=== PATIENT | female | born 1995 | race Hispanic/Latino ===

== ENCOUNTER 2017-03-08 19:38 | Emergency (ER) | payer MEDICAID ==
[2017-03-08 19:38] VITALS: BMI 31.9
[2017-03-08 20:05] VITALS: RESP 16
--- NOTE | 2017-03-08 20:07 | ED PDOC ---
Arrival/HPI - General Time Seen by Provider: 03/08/17 20:04 Historian: Patient - History of Present Illness Narrative History of Present Illness (Text): 03/08/17 20:05 21 y/o female, no significant pmh, nkda, c/o urinary frequency and dysuria x 3 days. Pt. stated that she urinary symptoms, suprapubic discomfort, no night sweat, no palpitation, no abdominal pain, no numbness or tingling, no other medical or psychological complaints. Past Medical History - Provider Review Nursing Documentation Reviewed: Yes - Past History Past History: No Previous - Infectious Disease Hx of Infectious Diseases: None - Tetanus Immunization Tetanus Immunization: Unknown - Past Medical History Past Medical History: No Previous - Cardiac Hx Cardiac Disorders: No - Pulmonary Hx Respiratory Disorders: No - Neurological Hx Neurological Disorder: No - HEENT Hx HEENT Disorder: No - Renal Hx Renal Disorder: No - Endocrine/Metabolic Hx Endocrine Disorders: No - Hematological/Oncological Hx Blood Disorders: No - Integumentary Hx Dermatological Disorder: No - Musculoskeletal/Rheumatological Hx Musculoskeletal Disorders: No - Gastrointestinal Hx Gastrointestinal Disorders: No - Genitourinary/Gynecological Hx Genitourinary Disorders: No - Psychiatric Hx Psychophysiologic Disorder: No Hx Substance Use: No - Surgical History Hx Tonsillectomy: Yes Other/Comment: Adnoids removed - Anesthesia Hx Anesthesia: Yes Hx Anesthesia Reactions: No Hx Malignant Hyperthermia: No - Suicidal Assessment Feels Threatened In Home Enviroment: No Family/Social History - Physician Review Nursing Documentation Reviewed: Yes Family/Social History: Unknown Family HX Smoking Status: Never Smoked Hx Alcohol Use: No Hx Substance Use: No Hx Substance Use Treatment: No Allergies/Home Meds Allergies/Adverse Reactions: Allergies No Known Allergies Allergy (Verified 03/08/17 20:05) Review of Systems - Review of Systems Constitutional: absent: Fatigue, Fevers Eyes: absent: Vision Changes ENT: absent: Hearing Changes Respiratory: absent: SOB, Cough Cardiovascular: absent: Chest Pain Gastrointestinal: absent: Abdominal Pain, Nausea, Vomiting Genitourinary Female: Dysuria, Frequency Musculoskeletal: absent: Arthralgias, Back Pain Skin: absent: Rash, Pruritis Neurological: absent: Headache, Dizziness Psychiatric: absent: Anxiety, Depression, Suicidal Ideation Physical Exam Vital Signs Reviewed: Yes Vital Signs Temp Pulse Resp BP Pulse Ox 03/08/17 20:02 98.9 F 94 H 16 112/62 97 Temperature: Afebrile Blood Pressure: Normal Pulse: Regular Respiratory Rate: Normal Appearance: Positive for: Well-Appearing, Non-Toxic, Comfortable Pain Distress: Mild Mental Status: Positive for: Alert and Oriented X 3 - Systems Exam Head: Present: Atraumatic, Normocephalic Pupils: Present: PERRL Extroacular Muscles: Present: EOMI Conjunctiva: Present: Normal Mouth: Present: Moist Mucous Membranes Neck: Present: Normal Range of Motion Respiratory/Chest: Present: Clear to Auscultation, Good Air Exchange. No: Respiratory Distress, Accessory Muscle Use Cardiovascular: Present: Regular Rate and Rhythm, Normal S1, S2. No: Murmurs Abdomen: Present: Tenderness (mild suprapubic tenderness), Normal Bowel Sounds. No: Distention, Peritoneal Signs, Rebound, Guarding Back: Present: Normal Inspection Upper Extremity: Present: Normal Inspection. No: Cyanosis, Edema Lower Extremity: Present: Normal Inspection. No: Edema Neurological: Present: GCS=15, Speech Normal, Motor Func Grossly Intact, Gait Normal, Memory Normal Skin: Present: Warm, Dry, Normal Color. No: Rashes Psychiatric: Present: Alert, Oriented x 3, Normal Insight, Normal Concentration Medical Decision Making ED Course and Treatment: 03/08/17 20:07 -Urine hcg -UA 03/08/17 21:08 -Urine hcg negative. -UA show +UTI, rocephine 1gm IM with po pyridium ordered. -Discharge home with macrobid, pyridium, stay hydrated, bed rest, follow up with your own pmd within 2 days, return to the ER for any new or worsening signs or symptoms. - Lab Interpretations Lab Results: Lab Results 03/08/17 20:12: Urine Color Yellow, Urine Appearance Clear, Urine pH 6.5, Ur Specific [place] 1.025, Urine Protein 30 H, Urine Glucose (UA) Negative, Urine Ketones Negative, Urine Blood Moderate H, Urine Nitrate Negative, Urine Bilirubin Negative, Urine Urobilinogen 0.2, Ur Leukocyte Esterase Small H, Urine RBC 25 - 30, Urine WBC 10 - 15, Ur Epithelial Cells 6 - 8, Amorphous Sediment Few, Urine Bacteria Many, Urine Other Uyeast - Medication Orders Current Medication Orders: Discontinued Medications Ceftriaxone Sodium (Rocephin) 1 gm IM STAT STA PRN Reason: Protocol Stop: 03/08/17 20:58 Phenazopyridine HCl (Pyridium) 200 mg PO STAT STA Stop: 03/08/17 20:35 - 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 Disposition/Present on Arrival - Present on Arrival Any Indicators Present on Arrival: No History of DVT/PE: No History of Uncontrolled Diabetes: No Urinary Catheter: No History of Decub. Ulcer: No History Surgical Site Infection Following: None - Disposition Have Diagnosis and Disposition been Completed?: Yes Diagnosis: UTI (urinary tract infection) Disposition: HOME/ ROUTINE Disposition Time: 21:09 Patient Plan: Discharge Patient Problems: Current Active Problems Problem Status Onset UTI (urinary tract infection) Acute Condition: GOOD Additional Instructions: Discharge home with macrobid, pyridium, stay hydrated, bed rest, follow up with your own pmd within 2 days, return to the ER for any new or worsening signs or symptoms. Prescriptions: Nitrofurantoin Macrocrystals [Macrobid] 100 mg PO BID #14 cap Phenazopyridine [Phenazopyridine HCl] 200 mg PO TID #6 tab Referrals: [facility] [place]] - Follow up with primary Forms: WORK NOTE
[2017-03-08 20:26] LABS: PH,URINE 6.5 (4.7-8.0); URINE APPEARANCE CLEAR (CLEAR); URINE BILIRUBIN NEGATIVE (NEGATIVE); URINE BLOOD MODERATE (NEGATIVE); URINE COLOR YELLOW (YELLOW); URINE GLUCOSE (UA) NEGATIVE (NEGATIVE); URINE KETONE NEGATIVE (NEGATIVE); URINE LEUKOCYTE ESTERASE SMALL Leu/uL (NEGATIVE); URINE PROTEIN 30 mg/dL (<30 mg/dL); URINE UROBILINOGEN 0.2 E.U./dL (<1 E.U./dL)
[2017-03-08 20:39] LABS: URINE RBC 25 - 30 /hpf (0-2)
[2017-03-08 20:40] LABS: URINE AMORPHOUS SEDIMENT FEW; URINE BACTERIA MANY (NEG)
[2017-03-08] MEDS ORDERED: cefTRIAXone (Rocephin) 1 gm Inj IM STA (20:57)
[2017-03-08 21:44] VITALS: BP 121/75; PULSE 77; TEMP 98.7; O2SAT 100
== END 2017-03-08 21:46 | disposition home or self-care (01) ==
LOC: ED 19:38
DX: N39.0 Urinary tract infection, site not specified (principal)
CPT/HCPCS: 81001; 87086; 87181; 96372; 99283; J0696

== ENCOUNTER 2018-01-23 04:48 | Emergency (ER) | payer MEDICAID ==
[2018-01-23 04:48] VITALS: BMI 31.9
[2018-01-23 04:58] VITALS: BP 111/71; PULSE 92; RESP 18; TEMP 97.7
[2018-01-23] MEDS ORDERED: Amoxicillin-Clav 875-125 mg Tab PO STA (05:07)
--- NOTE | 2018-01-23 05:09 | ED PDOC ---
Arrival/HPI - General Chief Complaint: Cough, Cold, Congestion Time Seen by Provider: 01/23/18 05:01 Historian: Patient - History of Present Illness Narrative History of Present Illness (Text): 01/23/18 05:05 Radha Negrete is a 22 year old female, whose past medical history includes tonsillectomy, who presents to the emergency department with complaints of rhinorrhea and sore throat for the past few days. Patient reports associated nasal congestion and tinnitus. Patient denies any fever, chills, shortness of breath, cough, dizziness, headache, chest pain, abdominal pain, or any other complaint. Time/Duration: < week Symptom Onset: Gradual Symptom Course: Unchanged Activities at Onset: Light Context: Home Past Medical History - Provider Review Nursing Documentation Reviewed: Yes - Past History Past History: No Previous - Infectious Disease Hx of Infectious Diseases: None - Tetanus Immunization Tetanus Immunization: Unknown - Past Medical History Past Medical History: No Previous - Cardiac Hx Cardiac Disorders: No - Pulmonary Hx Respiratory Disorders: No - Neurological Hx Neurological Disorder: No - HEENT Hx HEENT Disorder: No - Renal Hx Renal Disorder: No - Endocrine/Metabolic Hx Endocrine Disorders: No - Hematological/Oncological Hx Blood Disorders: No - Integumentary Hx Dermatological Disorder: No - Musculoskeletal/Rheumatological Hx Musculoskeletal Disorders: No - Gastrointestinal Hx Gastrointestinal Disorders: No - Genitourinary/Gynecological Hx Genitourinary Disorders: No - Psychiatric Hx Psychophysiologic Disorder: No Hx Substance Use: No - Surgical History Hx Tonsillectomy: Yes Other/Comment: Adnoids removed - Anesthesia Hx Anesthesia: Yes Hx Anesthesia Reactions: No Hx Malignant Hyperthermia: No - Suicidal Assessment Feels Threatened In Home Enviroment: No Family/Social History - Physician Review Nursing Documentation Reviewed: Yes Family/Social History: Unknown Family HX Smoking Status: Never Smoked Hx Alcohol Use: Yes Frequency of alcohol use: Socially Hx Substance Use: No Hx Substance Use Treatment: No Allergies/Home Meds Allergies/Adverse Reactions: Allergies No Known Allergies Allergy (Verified 03/08/17 20:05) Review of Systems - Physician Review All systems were reviewed & negative as marked: Yes - Review of Systems Constitutional: absent: Fevers ENT: Tinnitus, Sore Throat, Rhinorrhea, Sinus Congestion Respiratory: absent: SOB, Cough Cardiovascular: absent: Chest Pain Gastrointestinal: absent: Abdominal Pain Musculoskeletal: absent: Back Pain, Neck Pain Neurological: absent: Headache, Dizziness Physical Exam Vital Signs Reviewed: Yes Vital Signs Temp Pulse Resp BP Pulse Ox 01/23/18 04:56 97.7 F 92 H 18 111/71 97 Temperature: Afebrile Blood Pressure: Normal Pulse: Regular Respiratory Rate: Normal Appearance: Positive for: Well-Appearing, Non-Toxic, Comfortable Pain Distress: None Mental Status: Positive for: Alert and Oriented X 3 - Systems Exam Head: Present: Atraumatic, Normocephalic Pupils: Present: PERRL Extroacular Muscles: Present: EOMI Conjunctiva: Present: Normal Ears: Present: Normal, NORMAL TM, Normal Canal. No: Erythema, TM Bulging, Fluid, TM Perf Mouth: Present: Moist Mucous Membranes Pharnyx: Present: ERYTHEMA (erythema to posterior pharynx). No: EXUDATE, TONSILS ENLARGED, Peritonsilar Swelling, Uvular Deviation, Muffled/Hoarse Voice, Strider, Soft Palate/Uvular Edema Nose (Internal): Present: Rhinorrhea, Other (Nasal congestion) Neck: Present: Normal Range of Motion. No: Meningeal Signs, MIDLINE TENDERNESS, Paraspinal Tenderness Respiratory/Chest: Present: Clear to Auscultation, Good Air Exchange. No: Respiratory Distress, Accessory Muscle Use Cardiovascular: Present: Regular Rate and Rhythm, Normal S1, S2. No: Murmurs Abdomen: No: Tenderness, Distention, Peritoneal Signs Back: Present: Normal Inspection Upper Extremity: Present: Normal Inspection. No: Cyanosis, Edema Lower Extremity: Present: Normal Inspection. No: Edema Neurological: Present: GCS=15, CN II-XII Intact, Speech Normal Skin: Present: Warm, Dry, Normal Color. No: Rashes Psychiatric: Present: Alert, Oriented x 3, Normal Insight, Normal Concentration Medical Decision Making ED Course and Treatment: 01/23/18 05:05 Impression: 22 year old female who presents to the emergency department with sore throat, rhinorrhea, nasal congestion, and tinnitus. Plan: -- Augmentin -- Sudafed -- Reassess and disposition Progress Notes: - Scribe Statement The provider has reviewed the documentation as recorded by the Scribe Rachael lyman with [facility] Cross Provider Scribe Attestation: All medical record entries made by the Scribe were at my direction and personally dictated by me. I have reviewed the chart and agree that the record accurately reflects my personal performance of the history, physical exam, medical decision making, and the department course for this patient. I have also personally directed, reviewed, and agree with the discharge instructions and disposition. Disposition/Present on Arrival - Present on Arrival Any Indicators Present on Arrival: No History of DVT/PE: No History of Uncontrolled Diabetes: No Urinary Catheter: No History of Decub. Ulcer: No History Surgical Site Infection Following: None - Disposition Have Diagnosis and Disposition been Completed?: Yes Diagnosis: Sinusitis, Pharyngitis Disposition: HOME/ ROUTINE Disposition Time: 05:18 Patient Plan: Discharge Condition: GOOD Discharge Instructions (ExitCare): Sore Throat, Adult (DC), Sinusitis, Adult (DC) Additional Instructions: Drink plenty of liquids/take meds as prescribed/follow up with your doctor Prescriptions: Fexofenadine/Pseudoephedrine [Emily-D 12 Hour Tablet] 1 each PO BID PRN #24 tab.er.12h PRN Reason: Nasal Congestion Amoxicillin/Clavulanate [Augmentin 875 MG-125 MG] 1 tab PO BID #20 tab Forms: [employer] (Estonian)
[2018-01-23 05:52] VITALS: O2SAT 98
== END 2018-01-23 05:50 | disposition home or self-care (01) ==
LOC: ED 04:48
DX: J32.9 Chronic sinusitis, unspecified (principal); J02.9 Acute pharyngitis, unspecified

== ENCOUNTER 2018-04-27 09:19 | Observation (INO) | payer MEDICAID ==
[2018-04-27 09:44] VITALS: BMI 33.4
--- NOTE | 2018-04-27 09:59 | ED PDOC ---
Arrival/HPI - General Historian: Patient - History of Present Illness Narrative History of Present Illness (Text): 04/27/18 09:46 23 year old female, pmh including orbital wall fracture, nkda, complaining of abdominal pain/nausea/vomiting/diarrhea/fatigue x 1 day. Pt. stated that she had rice and lee last night cooked properly last night around 7pm, started to have nausea/vomiting/diarrhea throughout the night, no bloody stool and no abdominal pain, no recent antibiotic use for the past 6 weeks, no numbness or tingling, no other medical or psychological complaints. Past Medical History - Provider Review Nursing Documentation Reviewed: Yes - Past History Past History: No Previous - Infectious Disease Hx of Infectious Diseases: None - Tetanus Immunization Tetanus Immunization: Unknown - Reproductive Currently : No - Past Medical History Past Medical History: No Previous - Cardiac Hx Cardiac Disorders: No - Pulmonary Hx Respiratory Disorders: No - Neurological Hx Neurological Disorder: No - HEENT Hx HEENT Disorder: No - Renal Hx Renal Disorder: No - Endocrine/Metabolic Hx Endocrine Disorders: No - Hematological/Oncological Hx Blood Disorders: No - Integumentary Hx Dermatological Disorder: No - Musculoskeletal/Rheumatological Hx Musculoskeletal Disorders: No - Gastrointestinal Hx Gastrointestinal Disorders: No - Genitourinary/Gynecological Hx Genitourinary Disorders: No - Psychiatric Hx Psychophysiologic Disorder: No Hx Substance Use: No - Surgical History Hx Tonsillectomy: Yes Other/Comment: Adnoids removed - Anesthesia Hx Anesthesia: Yes Hx Anesthesia Reactions: No Hx Malignant Hyperthermia: No - Suicidal Assessment Feels Threatened In Home Enviroment: No Family/Social History - Physician Review Nursing Documentation Reviewed: Yes Family/Social History: Unknown Family HX Smoking Status: Never Smoked Hx Alcohol Use: Yes Hx Substance Use: No Hx Substance Use Treatment: No Allergies/Home Meds Allergies/Adverse Reactions: Allergies No Known Allergies Allergy (Verified 04/27/18 09:44) Home Medications: Home Meds Medication Instructions Recorded Confirmed No Known Home Med 12/10/11 12/10/11 Review of Systems - Review of Systems Constitutional: Fatigue. absent: Fevers Eyes: absent: Vision Changes ENT: absent: Hearing Changes Respiratory: absent: SOB, Cough Cardiovascular: absent: Chest Pain Gastrointestinal: Abdominal Pain, Diarrhea, Nausea, Vomiting Musculoskeletal: absent: Arthralgias, Back Pain Skin: absent: Rash, Pruritis Neurological: absent: Headache, Dizziness Psychiatric: absent: Anxiety, Depression, Suicidal Ideation Physical Exam Vital Signs Reviewed: Yes Temperature: Afebrile Blood Pressure: Normal Pulse: Regular Respiratory Rate: Normal Appearance: Positive for: Well-Appearing, Non-Toxic, Comfortable Pain Distress: None Mental Status: Positive for: Alert and Oriented X 3 - Systems Exam Head: Present: Atraumatic, Normocephalic Pupils: Present: PERRL Extroacular Muscles: Present: EOMI Conjunctiva: Present: Normal Mouth: Present: Moist Mucous Membranes Pharnyx: No: ERYTHEMA, EXUDATE, TONSILS ENLARGED Nose (External): Present: Atraumatic. No: Abrasion, Contusion, Laceration Nose (Internal): Present: Normal Inspection, No Active Bleeding. No: Edematous, Rhinorrhea, Septal Deviation, Septal Hematoma, Epistaxis Neck: Present: Normal Range of Motion, Trachea Midline. No: Meningeal Signs, MIDLINE TENDERNESS, Paraspinal Tenderness, Lymphadenopathy Respiratory/Chest: Present: Clear to Auscultation, Good Air Exchange. No: Respiratory Distress, Accessory Muscle Use, Wheezes, Decreased Breath Sounds, Rales, Retracting, Rhonchi, Tachypneic, Tender to Palpation Cardiovascular: Present: Regular Rate and Rhythm, Normal S1, S2. No: Murmurs Abdomen: Present: Tenderness (generalized). No: Distention, Peritoneal Signs, Rebound, Guarding Back: Present: Normal Inspection Upper Extremity: Present: Normal Inspection, Normal ROM, NORMAL PULSES, Neurovascularly Intact, Capillary Refill < 2s. No: Cyanosis, Edema, Deformity Lower Extremity: Present: Normal Inspection, NORMAL PULSES, Normal ROM, Neurovascularly Intact, Capillary Refill < 2 s. No: Edema, Tenderness, Swelling, Deformity Neurological: Present: GCS=15, CN II-XII Intact, Speech Normal, Motor Func Grossly Intact, Gait Normal, Memory Normal Skin: Present: Warm, Dry, Normal Color. No: Rashes Psychiatric: Present: Alert, Oriented x 3, Normal Insight, Normal Concentration Medical Decision Making ED Course and Treatment: 04/27/18 10:12 -labs -IVF/pepcid/zofran -Observe and reasses 04/27/18 12:39 -Urine hcg is negative -CT abdomen and pelvis: Findings consistent with a nonspecific diarrheal illness as above. Minor fatty hepatic infiltration. -Labs show no acute findings except wbc 17 -Urinalysis show no UTI -Pt. feels well, will repeat the cbc after 2000cc of fluid and reassess 04/27/18 14:06 -repeated wbc 14, still tachycardia around 100s after 2000cc fluid, IV cipro/flagyl ordered with the stool/c.diff stool cultures as I can not clinically rule out this is not bacterial colitis/c.diff, risks and benefits of antibiotics discussed with the patient including side effect of cipro (prolong qt and achilles tendon rupture). -Pt. stated that she still feels fatigue and tired, too fatigue to get up, not stable to be discharged home, will admit for IV antibiotic. 04/27/18 14:23 -I spoke to DR. Doe, discussed about the case, agreed to admit to his service. - RAD Interpretation Radiology Orders: Date of service: 04/27/2018 PROCEDURE: CT Abdomen and Pelvis. HISTORY: Diarrhea/nausea/vomiting COMPARISON: Comparison made with prior study 12/03/2015 TECHNIQUE: Contiguous axial images of the abdomen and pelvis performed following intravenous injection of approximately 100 cc Omnipaque 350 contrast material. Additional 2D sagittal and coronal reformats generated. Radiation dose: Total exam DLP = 965.39 mGy-cm. This CT exam was performed using one or more of the following dose reduction techniques: Automated exposure control, adjustment of the mA and/or kV according to patient size, and/or use of iterative reconstruction technique. FINDINGS: LOWER THORAX: Heart size is within range of normal. No significant pericardial effusion. There is a small hiatal hernia. LIVER: Unremarkable. Minor fatty hepatic infiltration. No gross lesion or ductal dilatation. GALLBLADDER AND BILE DUCTS: Unremarkable. PANCREAS: Unremarkable. No mass. No ductal dilatation. SPLEEN: Unremarkable. No splenomegaly. ADRENALS: Unremarkable. KIDNEYS AND URETERS: Unremarkable. No stone or hydronephrosis. BLADDER: Urinary bladder is incompletely distended which in part accounts slight thick- walled appearance. Rule out cystitis therefore correlation with urinalysis suggested. The REPRODUCTIVE: Unremarkable. APPENDIX: Normal-appearing appendix. BOWEL: Evaluation of the bowel slightly limited due to the lack of oral contrast material. Stomach is partially distended with liquid and air. Multiple nondistended fluid-filled loops of small bowel are present some of which exhibit minimal. Additionally, fluid is present of within portions of the large bowel. Findings consistent with a diarrheal illness nonspecific.. PERITONEUM: Unremarkable. No fluid collection. No free air. There is a small fat containing umbilical hernia. The LYMPH NODES: Unremarkable. No enlarged lymph nodes. VASCULATURE: Unremarkable. No aortic aneurysm. No aortic atherosclerotic calcification or mural plaque present. BONES: No fracture or destructive lesion. OTHER FINDINGS: None. IMPRESSION: Findings consistent with a nonspecific diarrheal illness as above. 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 Disposition/Present on Arrival - Present on Arrival Any Indicators Present on Arrival: No History of DVT/PE: No History of Uncontrolled Diabetes: No Urinary Catheter: No History of Decub. Ulcer: No History Surgical Site Infection Following: None - Disposition Have Diagnosis and Disposition been Completed?: Yes Diagnosis: Leukocytosis, Diarrhea Disposition: HOSPITALIZED Disposition Time: 14:07 Patient Plan: Admission, Observation Patient Problems: Current Active Problems Problem Status Onset Diarrhea Acute Leukocytosis Acute Condition: STABLE
[2018-04-27] MEDS ORDERED: Sodium Chloride 0.9% 1,000 ML IV STA ×2 (10:06→11:40)
[2018-04-27 10:15] LABS: BASO # 0.01 K/mm3 (0.0-2.0); BASO % 0.1 % (0.0-3.0); LYMPH # 0.6 (1.2-3.4); LYMPH % 3.7 % (22.0-35.0); MEAN CELL VOLUME 88.1 fl (80.0-105.0); MEAN CORPUSCULAR HEMOGLOBIN 28.8 pg (25.0-35.0); MEAN CORPUSCULAR HGB CONC 32.7 g/dl (31.0-37.0); MEAN PLATELET VOLUME 9.4 fl (7.0-11.0); MONO # 0.5 (0.1-0.6); MONO % 2.8 % (1.0-6.0); PLATELET COUNT 328 10^3/uL (120.0-450.0); RBC 4.86 10^6/uL (3.5-6.1); RED CELL DISTRIBUTION WIDTH 13.7 % (11.5-14.5)
[2018-04-27 10:23] LABS: ALB/GLOB RATIO 1.3 (1.1-1.8); ALBUMIN 4.7 g/dL (3.0-4.8); ALT/SGPT 27 U/L (7-56); AST/SGOT 26 U/L (14-36); BLOOD UREA NITROGEN 12 mg/dL (7-21); CALCIUM 9.6 mg/dL (8.4-10.5); GFR NON-AFRICAN AMERICAN > 60; LIPASE 51 U/L (23-300)
[2018-04-27 10:58] LABS: LYMPHOCYTE 3 % (22.0-35.0); MONOCYTE 2 % (1.0-6.0); NEUTROPHIL 95 % (50.0-70.0); PLATELET ESTIMATE NORMAL (NORMAL)
[2018-04-27 10:59] LABS: ANISOCYTOSIS SLIGHT; TOXIC GRANULATION SLIGHT
[2018-04-27] MEDS ORDERED: Iohexol 350 MG/100 ML VIAL ONE (11:06)
[2018-04-27 11:15] LABS: PH,URINE 7.5 (4.7-8.0); URINE BILIRUBIN NEGATIVE (NEGATIVE); URINE BLOOD NEGATIVE (NEGATIVE); URINE GLUCOSE (UA) NEGATIVE (NEGATIVE); URINE LEUKOCYTE ESTERASE NEGATIVE Leu/uL (NEGATIVE); URINE PROTEIN 30 mg/dL (<30 mg/dL); URINE UROBILINOGEN 0.2 E.U./dL (<1 E.U./dL)
[2018-04-27 11:22] LABS: URINE APPEARANCE CLEAR (CLEAR); URINE COLOR YELLOW (YELLOW)
[2018-04-27 11:27] LABS: URINE BACTERIA MANY /hpf; URINE RBC 0 - 2 /hpf (0-2)
--- NOTE | 2018-04-27 12:07 | CT ---
Date of service: 04/27/2018 PROCEDURE: CT Abdomen and Pelvis. HISTORY: Diarrhea/nausea/vomiting COMPARISON: Comparison made with prior study 12/03/2015 TECHNIQUE: Contiguous axial images of the abdomen and pelvis performed following intravenous injection of approximately 100 cc Omnipaque 350 contrast material. Additional 2D sagittal and coronal reformats generated. Radiation dose: Total exam DLP = 965.39 mGy-cm. This CT exam was performed using one or more of the following dose reduction techniques: Automated exposure control, adjustment of the mA and/or kV according to patient size, and/or use of iterative reconstruction technique. FINDINGS: LOWER THORAX: Heart size is within range of normal. No significant pericardial effusion. There is a small hiatal hernia. LIVER: Unremarkable. Minor fatty hepatic infiltration. No gross lesion or ductal dilatation. GALLBLADDER AND BILE DUCTS: Unremarkable. PANCREAS: Unremarkable. No mass. No ductal dilatation. SPLEEN: Unremarkable. No splenomegaly. ADRENALS: Unremarkable. KIDNEYS AND URETERS: Unremarkable. No stone or hydronephrosis. BLADDER: Urinary bladder is incompletely distended which in part accounts slight thick-walled appearance. Rule out cystitis therefore correlation with urinalysis suggested. The REPRODUCTIVE: Unremarkable. APPENDIX: Normal-appearing appendix. BOWEL: Evaluation of the bowel slightly limited due to the lack of oral contrast material. Stomach is partially distended with liquid and air. Multiple nondistended fluid-filled loops of small bowel are present some of which exhibit minimal. Additionally, fluid is present of within portions of the large bowel. Findings consistent with a diarrheal illness nonspecific.. PERITONEUM: Unremarkable. No fluid collection. No free air. There is a small fat containing umbilical hernia. The LYMPH NODES: Unremarkable. No enlarged lymph nodes. VASCULATURE: Unremarkable. No aortic aneurysm. No aortic atherosclerotic calcification or mural plaque present. BONES: No fracture or destructive lesion. OTHER FINDINGS: None. IMPRESSION: Findings consistent with a nonspecific diarrheal illness as above. Minor fatty hepatic infiltration
[2018-04-27 13:33] LABS: BASO # 0.01 K/mm3 (0.0-2.0); BASO % 0.1 % (0.0-3.0); HEMOGLOBIN 12.7 g/dL (12.0-16.0); LYMPH # 0.4 (1.2-3.4); LYMPH % 2.9 % (22.0-35.0); MEAN CELL VOLUME 88.4 fl (80.0-105.0); MEAN CORPUSCULAR HGB CONC 32.8 g/dl (31.0-37.0); MEAN PLATELET VOLUME 9.6 fl (7.0-11.0); MONO # 0.5 (0.1-0.6); MONO % 3.8 % (1.0-6.0); RBC 4.38 10^6/uL (3.5-6.1); RED CELL DISTRIBUTION WIDTH 13.9 % (11.5-14.5); WHITE BLOOD COUNT 14.2 10^3/uL (4.5-11.0)
[2018-04-27] MEDS ORDERED: metroNIDAZOLE IV 500 mg/100 ml 500 MG/100 ML BAG IVPB STA (14:05)
[2018-04-27] MEDS ORDERED: Ciprofloxacin 400mg/200ml D5W 400 MG/200 ML BAG IVPB STA (14:05)
--- NOTE | 2018-04-27 15:30 | CP.PCM.HP ---
<Masoud Wiley - Last Filed: 04/27/18 15:43> History of Present Illness - History of Present Illness History of Present Illness: Masoud Wiley PGY1, History and Physical for Dr Shirley Potter Pt is a 23 yo female with no significant PMH who presents to the ED stating that she has been experiencing vomiting and diarrhea all night and has had approximately 10 episodes of diarrhea, both have been non bloody/ non bilious. Pt states she ate rice, chicken and beans last night but no one else who at the food got sick. She denies sick contacts, or recent travel. Pt has not been able to eat any food, she has only been able to drink Gatorade. Pt reports abdominal pain which has been constant and prompts her to try to have a BM, but the pain is not relieved after the BM. Pt denies fever. A 12 point ROS was obtained and added to the HPI where appropriate. PMH: denies PSH: T/A FH: Mother blood clots, spine surgery, Father DM SH: denies tobacco, social alcohol, denies drugs Home meds: depo shot Allergies: denies Present on Admission - Present on Admission Any Indicators Present on Admission: No Review of Systems - Review of Systems Review of Systems: a 12 point ROS was obtained and added to the HPI where appropriate Past Patient History - Infectious Disease Hx of Infectious Diseases: None - Tetanus Immunizations Tetanus Immunization: Unknown - Past Social History Smoking Status: Never Smoked - CARDIAC Hx Cardiac Disorders: No - PULMONARY Hx Respiratory Disorders: No - NEUROLOGICAL Hx Neurological Disorder: No - HEENT Hx HEENT Problems: No - RENAL Hx Chronic Kidney Disease: No - ENDOCRINE/METABOLIC Hx Endocrine Disorders: No - HEMATOLOGICAL/ONCOLOGICAL Hx Blood Disorders: No - INTEGUMENTARY Hx Dermatological Problems: No - MUSCULOSKELETAL/RHEUMATOLOGICAL Hx Musculoskeletal Disorders: No - GASTROINTESTINAL Hx Gastrointestinal Disorders: No - GENITOURINARY/GYNECOLOGICAL Hx Genitourinary Disorders: No - PSYCHIATRIC Hx Psychophysiologic Disorder: No Hx Substance Use: No - SURGICAL HISTORY Hx Tonsillectomy: Yes Other/Comment: Adnoids removed - ANESTHESIA Hx Anesthesia: Yes Hx Anesthesia Reactions: No Hx Malignant Hyperthermia: No Meds Allergies/Adverse Reactions: Allergies Allergy/AdvReac Type Severity Reaction Status Date / Time No Known Allergies Allergy Verified 04/27/18 09:44 Physical Exam - Constitutional Appears: No Acute Distress - Head Exam Head Exam: ATRAUMATIC, NORMOCEPHALIC - Eye Exam Eye Exam: EOMI - ENT Exam ENT Exam: Mucous Membranes Moist - Neck Exam Neck exam: Positive for: Full Rom - Respiratory Exam Respiratory Exam: Clear to Auscultation Bilateral, NORMAL BREATHING PATTERN. absent: Accessory Muscle Use, Respiratory Distress - Cardiovascular Exam Cardiovascular Exam: RRR, +S1, +S2. absent: Diastolic murmur, Systolic Murmur - GI/Abdominal Exam GI & Abdominal Exam: Normal Bowel Sounds, Soft. absent: Tenderness - Extremities Exam Extremities exam: Positive for: full ROM - Neurological Exam Neurological exam: Alert, Oriented x3 - Psychiatric Exam Psychiatric exam: Normal Affect, Normal Mood - Skin Skin Exam: Dry, Intact, Warm Results - Vital Signs Recent Vital Signs: Last Vital Signs Temp 97.4 F L 04/27/18 09:58 Pulse 104 H 04/27/18 13:54 Resp 16 04/27/18 13:54 BP 122/64 04/27/18 13:54 Pulse Ox 100 04/27/18 13:54 - Labs Result Diagrams: 04/27/18 13:18 04/27/18 10:08 Labs: Laboratory Results - last 24 hr 04/27/18 04/27/18 04/27/18 10:08 10:08 10:08 WBC 17.0 H RBC 4.86 Hgb 14.0 Hct 42.8 MCV 88.1 MCH 28.8 MCHC 32.7 RDW 13.7 Plt Count 328 MPV 9.4 Neut % (Auto) 93.4 H Lymph % (Auto) 3.7 L [place] % (Auto) 2.8 Eos % (Auto) 0.0 L Baso % (Auto) 0.1 Lymph # (Auto) 0.6 L [place] # (Auto) 0.5 Eos # (Auto) 0.0 Baso # (Auto) 0.01 Absolute Neuts (auto) 15.85 H Neutrophils % (Manual) 95 H Lymphocytes % (Manual) 3 L Monocytes % (Manual) 2 Toxic Granulation Slight Platelet Evaluation Normal Anisocytosis (manual) Slight Sodium 141 Potassium 4.4 Chloride 106 Carbon Dioxide 27 Anion Gap 13 BUN 12 Creatinine 0.6 L Est GFR ( Amer) > 60 Est GFR (Non-Af Amer) > 60 Random Glucose 128 H Calcium 9.6 Magnesium 2.1 Total Bilirubin 0.6 AST 26 ALT 27 Alkaline Phosphatase 79 Total Protein 8.2 Albumin 4.7 Globulin 3.5 Albumin/Globulin Ratio 1.3 Lipase 51 Urine Color Urine Appearance Urine pH Ur Specific [place] Urine Protein Urine Glucose (UA) Urine Ketones Urine Blood Urine Nitrate Urine Bilirubin Urine Urobilinogen Ur Leukocyte Esterase Urine RBC Urine WBC Ur Epithelial Cells Urine Bacteria Urine Other Influenza Typ A,B (EIA) Negative for flu a/b 04/27/18 04/27/18 11:00 13:18 WBC 14.2 H RBC 4.38 Hgb 12.7 Hct 38.7 MCV 88.4 MCH 29.0 MCHC 32.8 RDW 13.9 Plt Count 312 MPV 9.6 Neut % (Auto) 93.2 H Lymph % (Auto) 2.9 L [place] % (Auto) 3.8 Eos % (Auto) 0.0 L Baso % (Auto) 0.1 Lymph # (Auto) 0.4 L [place] # (Auto) 0.5 Eos # (Auto) 0.0 Baso # (Auto) 0.01 Absolute Neuts (auto) 13.23 H Neutrophils % (Manual) Lymphocytes % (Manual) Monocytes % (Manual) Toxic Granulation Platelet Evaluation Anisocytosis (manual) Sodium Potassium Chloride Carbon Dioxide Anion Gap BUN Creatinine Est GFR ( Amer) Est GFR (Non-Af Amer) Random Glucose Calcium Magnesium Total Bilirubin AST ALT Alkaline Phosphatase Total Protein Albumin Globulin Albumin/Globulin Ratio Lipase Urine Color Yellow Urine Appearance Clear Urine pH 7.5 Ur Specific [place] 1.010 Urine Protein 30 H Urine Glucose (UA) Negative Urine Ketones Negative Urine Blood Negative Urine Nitrate Negative Urine Bilirubin Negative Urine Urobilinogen 0.2 Ur Leukocyte Esterase Negative Urine RBC 0 - 2 Urine WBC 1 - 3 Ur Epithelial Cells 4 - 5 Urine Bacteria Many Urine Other Uyeast Influenza Typ A,B (EIA) Assessment & Plan - Assessment and Plan (Free Text) Assessment: Pt is a 23 yo female with no significant PMH who presents to the ED stating that she has been experiencing vomiting and diarrhea all night and has had approximately 10 episodes of diarrhea, both have been non bloody/ non bilious. Plan: Intractable Vomiting and Diarrhea - likely viral gastroenteritis - NS@100 - pt given cipro, and flagyl in ED - zofran PRN Ppx - clear liquid diet - SCD Pt seen, examined, assessment and plan discussed with Dr Shirley Wiley PGY1, Internal Medicine Resident - Date & Time Date: 04/27/18 Time: 15:32 <Shirley Potter R - Last Filed: 04/27/18 16:15> Results - Vital Signs Recent Vital Signs: Last Vital Signs Temp 97.4 F L 04/27/18 09:58 Pulse 104 H 04/27/18 13:54 Resp 18 04/27/18 15:52 BP 122/64 04/27/18 13:54 Pulse Ox 100 04/27/18 13:54 - Labs Result Diagrams: 04/27/18 13:18 04/27/18 10:08 Labs: Laboratory Results - last 24 hr 04/27/18 04/27/18 04/27/18 10:08 10:08 10:08 WBC 17.0 H RBC 4.86 Hgb 14.0 Hct 42.8 MCV 88.1 MCH 28.8 MCHC 32.7 RDW 13.7 Plt Count 328 MPV 9.4 Neut % (Auto) 93.4 H Lymph % (Auto) 3.7 L [place] % (Auto) 2.8 Eos % (Auto) 0.0 L Baso % (Auto) 0.1 Lymph # (Auto) 0.6 L [place] # (Auto) 0.5 Eos # (Auto) 0.0 Baso # (Auto) 0.01 Absolute Neuts (auto) 15.85 H Neutrophils % (Manual) 95 H Lymphocytes % (Manual) 3 L Monocytes % (Manual) 2 Toxic Granulation Slight Platelet Evaluation Normal Anisocytosis (manual) Slight Sodium 141 Potassium 4.4 Chloride 106 Carbon Dioxide 27 Anion Gap 13 BUN 12 Creatinine 0.6 L Est GFR ( Amer) > 60 Est GFR (Non-Af Amer) > 60 Random Glucose 128 H Calcium 9.6 Magnesium 2.1 Total Bilirubin 0.6 AST 26 ALT 27 Alkaline Phosphatase 79 Total Protein 8.2 Albumin 4.7 Globulin 3.5 Albumin/Globulin Ratio 1.3 Lipase 51 Urine Color Urine Appearance Urine pH Ur Specific [place] Urine Protein Urine Glucose (UA) Urine Ketones Urine Blood Urine Nitrate Urine Bilirubin Urine Urobilinogen Ur Leukocyte Esterase Urine RBC Urine WBC Ur Epithelial Cells Urine Bacteria Urine Other Influenza Typ A,B (EIA) Negative for flu a/b 04/27/18 04/27/18 11:00 13:18 WBC 14.2 H RBC 4.38 Hgb 12.7 Hct 38.7 MCV 88.4 MCH 29.0 MCHC 32.8 RDW 13.9 Plt Count 312 MPV 9.6 Neut % (Auto) 93.2 H Lymph % (Auto) 2.9 L [place] % (Auto) 3.8 Eos % (Auto) 0.0 L Baso % (Auto) 0.1 Lymph # (Auto) 0.4 L [place] # (Auto) 0.5 Eos # (Auto) 0.0 Baso # (Auto) 0.01 Absolute Neuts (auto) 13.23 H Neutrophils % (Manual) Lymphocytes % (Manual) Monocytes % (Manual) Toxic Granulation Platelet Evaluation Anisocytosis (manual) Sodium Potassium Chloride Carbon Dioxide Anion Gap BUN Creatinine Est GFR ( Amer) Est GFR (Non-Af Amer) Random Glucose Calcium Magnesium Total Bilirubin AST ALT Alkaline Phosphatase Total Protein Albumin Globulin Albumin/Globulin Ratio Lipase Urine Color Yellow Urine Appearance Clear Urine pH 7.5 Ur Specific [place] 1.010 Urine Protein 30 H Urine Glucose (UA) Negative Urine Ketones Negative Urine Blood Negative Urine Nitrate Negative Urine Bilirubin Negative Urine Urobilinogen 0.2 Ur Leukocyte Esterase Negative Urine RBC 0 - 2 Urine WBC 1 - 3 Ur Epithelial Cells 4 - 5 Urine Bacteria Many Urine Other Uyeast Influenza Typ A,B (EIA) Attending/Attestation - Attestation I have personally seen and examined this patient.: Yes I have fully participated in the care of the patient.: Yes I have reviewed all pertinent clinical information: Yes Notes (Text): Patient seen and examined by me with resident at 2:40PM on 04/27/18 in the emergency room. Case including HPI, physical exam, and assessment and plan discussed with resident. Agree with above with following additions/corrections. CC: Nausea, vomiting, diarrhea Patient is a 23-year-old female with no significant past medical history that presented to the emergency room with nausea, vomiting, abdominal pain, and diarrhea. Patient states that she had her [id number]'s rice, chicken, and beans that she normally eats around 7 PM at night. She states around 11 PM she started to feel nauseous and had nonbloody, nonbilious vomiting. She also had generalized abdominal pain and felt like she needed to have a bowel movement but was unable to do so. Abdominal pain was sharp and did not radiate. Patient states for the rest of the night, she had diarrhea and nausea. She also had nonbilious nonbloody vomiting this morning. She states that she continued to have the abdominal pain overnight that made her feel like she needed to have a bowel movement. Patient states that she believes that she threw up Gatorade and water that she drank this morning. Patient denies any fevers or chills. No headaches or dizziness. No lightheadedness. No chest pain or palpitations. No shortness of breath. No dysuria or burning with urination. No neck pain and back pain. 12 point review of systems reviewed by me. Please see above HPI. All other systems negative. Family history: Mother is alive and has history of DVT and spine surgery. Father is alive and has type 2 diabetes. Physical exam: General: Awake and alert lying in bed in no acute distress HEENT: Normocephalic, atraumatic. Extraocular muscles intact, pupils equal and reactive, no scleral icterus. Oropharynx is pink and moist. No pharyngeal erythema or exudate apreciated. Neck is supple. Hearing grossly intact. Ears and nose externally unremarkable. Cardiovascular: Regular rhythm. Normal S1 and S2. No murmurs, rubs, or gallops appreciated Pulmonary: Normal respiratory effort. No rhonchi, rales, or wheezing appreciated. Gastrointestinal: Soft, nondistended. Nontender. Positive bowel sounds all 4 quadrants. No guarding. Musculoskeletal: Moves all extremities. No calf tenderness. No edema. Central nervous system: AAOx3, CN 2-12 grossly intact. 5/5 muscle strength all extremities. Dermatologic: Skin warm and dry. Assessment and plan: Patient is a 23-year-old female with no significant past medical history that presented to the emergency room with nausea, vomiting, abdominal pain, and diarrhea. 1. Viral gastroenteritis. Patient afebrile. Leukocytosis downtrending. CT abdomen and pelvis radiologist showed findings consistent with a nonspecific diarrheal illness, minor fatty hepatic infiltration. Patient received a dose of Cipro and Flagyl in the ED. Continue with IV fluids. Some clear liquid diet. Zofran as needed. 2. Nausea, vomiting, abdominal pain, and diarrhea. Secondary to #1. Placed on IV fluids. Zofran as needed. 3. Tachycardia. Likely secondary to dehydration. Continue IV fluids. Case was discussed in detail with the patient regarding diagnosis and treatment plan. All questions answered.
[2018-04-27] MEDS: Sodium Chloride 0.9% 1,000 ML IV SCH (17:54)
[2018-04-27 22:55] VITALS: RESP 20
[2018-04-28] MEDS: Sodium Chloride 0.9% 1,000 ML IV SCH (02:00)
[2018-04-28 07:14] LABS: BASO # 0.01 K/mm3 (0.0-2.0); BASO % 0.1 % (0.0-3.0); EOS % 0.1 % (1.5-5.0); HEMOGLOBIN 11.1 g/dL (12.0-16.0); LYMPH # 1.2 (1.2-3.4); LYMPH % 13.8 % (22.0-35.0); MEAN CELL VOLUME 87.5 fl (80.0-105.0); MEAN CORPUSCULAR HEMOGLOBIN 28.4 pg (25.0-35.0); MEAN CORPUSCULAR HGB CONC 32.5 g/dl (31.0-37.0); MEAN PLATELET VOLUME 9.3 fl (7.0-11.0); MONO # 0.9 (0.1-0.6); MONO % 10.2 % (1.0-6.0); RBC 3.91 10^6/uL (3.5-6.1); RED CELL DISTRIBUTION WIDTH 13.7 % (11.5-14.5); WHITE BLOOD COUNT 8.5 10^3/uL (4.5-11.0)
[2018-04-28 07:37] LABS: ALB/GLOB RATIO 1.2 (1.1-1.8); ALBUMIN 3.4 g/dL (3.0-4.8); ALT/SGPT 25 U/L (7-56); AST/SGOT 21 U/L (14-36); BLOOD UREA NITROGEN 5 mg/dL (7-21); CALCIUM 8.1 mg/dL (8.4-10.5); GFR NON-AFRICAN AMERICAN > 60
[2018-04-28] MEDS ORDERED: Potassium Chloride 40 mEq/30 ml LIQ UD PO ONE (09:11)
[2018-04-28] MEDS ORDERED: Sodium Chloride 0.9% 1,000 ML IV STA (09:22)
[2018-04-28 16:15] VITALS: BP 106/58; PULSE 77; TEMP 98.5; O2SAT 100
--- NOTE | 2018-04-28 18:09 | CP.PCM.DIS ---
<Masoud Wiley - Last Filed: 04/28/18 18:09> Provider - Provider Date of Admission: 04/27/18 14:20 Attending physician: Candelario Emanuel MD Primary care physician: Celeste Milton DO Time Spent in preparation of Discharge (in minutes): 35 Diagnosis - Discharge Diagnosis (1) Diarrhea Status: Acute Priority: High (2) Vomiting Status: Acute Priority: High Hospital Course - Lab Results Lab Results: Micro Results 04/27/18 18:19 Stool C. difficile Antigen & Toxins A,B - Final Most Recent Lab Values WBC 8.5 10^3/uL (4.5-11.0) D 04/28/18 06:25 RBC 3.91 10^6/uL (3.5-6.1) 04/28/18 06:25 Hgb 11.1 g/dL (12.0-16.0) L 04/28/18 06:25 Hct 34.2 % (36.0-48.0) L 04/28/18 06:25 MCV 87.5 fl (80.0-105.0) 04/28/18 06:25 MCH 28.4 pg (25.0-35.0) 04/28/18 06:25 MCHC 32.5 g/dl (31.0-37.0) 04/28/18 06:25 RDW 13.7 % (11.5-14.5) 04/28/18 06:25 Plt Count 260 10^3/uL (120.0-450.0) 04/28/18 06:25 MPV 9.3 fl (7.0-11.0) 04/28/18 06:25 Neut % (Auto) 75.8 % (50.0-68.0) H 04/28/18 06:25 Lymph % (Auto) 13.8 % (22.0-35.0) L 04/28/18 06:25 [place] % (Auto) 10.2 % (1.0-6.0) H 04/28/18 06:25 Eos % (Auto) 0.1 % (1.5-5.0) L 04/28/18 06:25 Baso % (Auto) 0.1 % (0.0-3.0) 04/28/18 06:25 Lymph # (Auto) 1.2 (1.2-3.4) 04/28/18 06:25 [place] # (Auto) 0.9 (0.1-0.6) H 04/28/18 06:25 Eos # (Auto) 0.0 (0.0-0.7) 04/28/18 06:25 Baso # (Auto) 0.01 K/mm3 (0.0-2.0) 04/28/18 06:25 Absolute Neuts (auto) 6.47 (1.4-6.5) 04/28/18 06:25 Neutrophils % (Manual) 95 % (50.0-70.0) H 04/27/18 10:08 Lymphocytes % (Manual) 3 % (22.0-35.0) L 04/27/18 10:08 Monocytes % (Manual) 2 % (1.0-6.0) 04/27/18 10:08 Toxic Granulation Slight 04/27/18 10:08 Platelet Evaluation Normal (NORMAL) 04/27/18 10:08 Anisocytosis (manual) Slight 04/27/18 10:08 Sodium 137 mmol/L (132-148) 04/28/18 06:25 Potassium 3.5 mmol/L (3.6-5.0) L 04/28/18 06:25 Chloride 107 mmol/L (98-107) 04/28/18 06:25 Carbon Dioxide 25 mmol/L (21-33) 04/28/18 06:25 Anion Gap 9 (10-20) L 04/28/18 06:25 BUN 5 mg/dL (7-21) L 04/28/18 06:25 Creatinine 0.6 mg/dl (0.7-1.2) L 04/28/18 06:25 Est GFR ( Amer) > 60 04/28/18 06:25 Est GFR (Non-Af Amer) > 60 04/28/18 06:25 Random Glucose 110 mg/dL (70-110) 04/28/18 06:25 Calcium 8.1 mg/dL (8.4-10.5) L 04/28/18 06:25 Magnesium 2.1 mg/dL (1.7-2.2) 04/27/18 10:08 Total Bilirubin 0.4 mg/dL (0.2-1.3) 04/28/18 06:25 AST 21 U/L (14-36) 04/28/18 06:25 ALT 25 U/L (7-56) 04/28/18 06:25 Alkaline Phosphatase 58 U/L (38-126) 04/28/18 06:25 Total Protein 6.2 g/dL (5.8-8.3) 04/28/18 06:25 Albumin 3.4 g/dL (3.0-4.8) 04/28/18 06:25 Globulin 2.8 gm/dL 04/28/18 06:25 Albumin/Globulin Ratio 1.2 (1.1-1.8) 04/28/18 06:25 Lipase 51 U/L (23-300) 04/27/18 10:08 Urine Color Yellow (YELLOW) 04/27/18 11:00 Urine Appearance Clear (CLEAR) 04/27/18 11:00 Urine pH 7.5 (4.7-8.0) 04/27/18 11:00 Ur Specific [place] 1.010 (1.005-1.035) 04/27/18 11:00 Urine Protein 30 mg/dL (<30 mg/dL) H 04/27/18 11:00 Urine Glucose (UA) Negative mg/dL (NEGATIVE) 04/27/18 11:00 Urine Ketones Negative mg/dL (NEGATIVE) 04/27/18 11:00 Urine Blood Negative (NEGATIVE) 04/27/18 11:00 Urine Nitrate Negative (NEGATIVE) 04/27/18 11:00 Urine Bilirubin Negative (NEGATIVE) 04/27/18 11:00 Urine Urobilinogen 0.2 E.U./dL (<1 E.U./dL) 04/27/18 11:00 Ur Leukocyte Esterase Negative [place]/uL (NEGATIVE) 04/27/18 11:00 Urine RBC 0 - 2 /hpf (0-2) 04/27/18 11:00 Urine WBC 1 - 3 /hpf (0-6) 04/27/18 11:00 Ur Epithelial Cells 4 - 5 /hpf (0-5) 04/27/18 11:00 Urine Bacteria Many /hpf (NONE) 04/27/18 11:00 Urine Other Uyeast /hpf 04/27/18 11:00 Influenza Typ A,B (EIA) Negative for flu a/b (NEGATIVE) 04/27/18 10:08 - Hospital Course Hospital Course: Hospitalization Pt is a 23 yo female with no significant PMH who presents to the ED stating that she has been experiencing vomiting and diarrhea all night and has had approximately 10 episodes of diarrhea, both have been non bloody/ non bilious. Denies sick contacts, or recent travel. Pt has not been able to eat any food, she has only been able to drink Gatorade. Reports abdominal pain which was constant and prompted her to try to have a BM, but the pain is not relieved after the BM. Discharge Hospitalized for nausea, vomiting, and diarrhea. Likely had a viral gastroenteritis. Please follow up with primary doctor (Dr. Milton) within 3-5 days. Please avoid any fatty, greasy, or heavy foods for the next 3-5 days. Please take oral Flagyl, the antibiotic, as prescribed. - Date & Time of H&P Date of H&P: 04/28/18 Time of H&P: 07:00 Discharge Exam - Head Exam Head Exam: ATRAUMATIC, NORMOCEPHALIC - Eye Exam Eye Exam: EOMI - ENT Exam ENT Exam: Mucous Membranes Moist - Neck Exam Neck exam: Full Rom - Respiratory Exam Respiratory Exam: NORMAL BREATHING PATTERN, UNREMARKABLE. absent: Accessory Muscle Use, Wheezes, Respiratory Distress - Cardiovascular Exam Cardiovascular Exam: RRR, +S1, +S2. absent: Diastolic murmur, Systolic Murmur - GI/Abdominal Exam GI & Abdominal Exam: Normal Bowel Sounds, Soft, Unremarkable. absent: Tenderness - Extremities Exam Extremities exam: full ROM - Neurological Exam Neurological exam: Alert, Oriented x3 - Psychiatric Exam Psychiatric exam: Normal Affect, Normal Mood - Skin Skin Exam: Dry, Intact, Warm Discharge Plan - Discharge Medications Prescriptions: Metronidazole [Flagyl] 500 mg PO TID #21 tablet - Follow Up Plan Condition: STABLE Disposition: HOME/ ROUTINE Instructions: Soft Diet, Rotavirus Infection (DC), Nutrition Tips for Relief of Diarrhea (DC) Additional Instructions: You were seen in the hospital for your nausea, vomiting, and diarrhea. You most likely had a viral gastroenteritis. Please follow up with your primary doctor (Dr. Milton) within 3-5 days. Please avoid any fatty, greasy, or heavy foods for the next 3-5 days. An informational packet on soft diet has been provided. Please take your oral Flagyl, the antibiotic, as prescribed. If you experience any new concerning or worsening symptoms, please present to the nearest Emergency Department. Referrals: Celeste Milton DO [Primary Care Provider] - <Candelario Emanuel - Last Filed: 04/29/18 15:45> Provider - Provider Date of Admission: 04/27/18 14:20 Attending physician: Candelario Emanuel MD Primary care physician: Celeste Milton DO Hospital Course - Lab Results Lab Results: Micro Results 04/27/18 18:19 Stool C. difficile Antigen & Toxins A,B - Final Most Recent Lab Values WBC 8.5 10^3/uL (4.5-11.0) D 04/28/18 06:25 RBC 3.91 10^6/uL (3.5-6.1) 04/28/18 06:25 Hgb 11.1 g/dL (12.0-16.0) L 04/28/18 06:25 Hct 34.2 % (36.0-48.0) L 04/28/18 06:25 MCV 87.5 fl (80.0-105.0) 04/28/18 06:25 MCH 28.4 pg (25.0-35.0) 04/28/18 06:25 MCHC 32.5 g/dl (31.0-37.0) 04/28/18 06:25 RDW 13.7 % (11.5-14.5) 04/28/18 06:25 Plt Count 260 10^3/uL (120.0-450.0) 04/28/18 06:25 MPV 9.3 fl (7.0-11.0) 04/28/18 06:25 Neut % (Auto) 75.8 % (50.0-68.0) H 04/28/18 06:25 Lymph % (Auto) 13.8 % (22.0-35.0) L 04/28/18 06:25 [place] % (Auto) 10.2 % (1.0-6.0) H 04/28/18 06:25 Eos % (Auto) 0.1 % (1.5-5.0) L 04/28/18 06:25 Baso % (Auto) 0.1 % (0.0-3.0) 04/28/18 06:25 Lymph # (Auto) 1.2 (1.2-3.4) 04/28/18 06:25 [place] # (Auto) 0.9 (0.1-0.6) H 04/28/18 06:25 Eos # (Auto) 0.0 (0.0-0.7) 04/28/18 06:25 Baso # (Auto) 0.01 K/mm3 (0.0-2.0) 04/28/18 06:25 Absolute Neuts (auto) 6.47 (1.4-6.5) 04/28/18 06:25 Neutrophils % (Manual) 95 % (50.0-70.0) H 04/27/18 10:08 Lymphocytes % (Manual) 3 % (22.0-35.0) L 04/27/18 10:08 Monocytes % (Manual) 2 % (1.0-6.0) 04/27/18 10:08 Toxic Granulation Slight 04/27/18 10:08 Platelet Evaluation Normal (NORMAL) 04/27/18 10:08 Anisocytosis (manual) Slight 04/27/18 10:08 Sodium 137 mmol/L (132-148) 04/28/18 06:25 Potassium 3.5 mmol/L (3.6-5.0) L 04/28/18 06:25 Chloride 107 mmol/L (98-107) 04/28/18 06:25 Carbon Dioxide 25 mmol/L (21-33) 04/28/18 06:25 Anion Gap 9 (10-20) L 04/28/18 06:25 BUN 5 mg/dL (7-21) L 04/28/18 06:25 Creatinine 0.6 mg/dl (0.7-1.2) L 04/28/18 06:25 Est GFR ( Amer) > 60 04/28/18 06:25 Est GFR (Non-Af Amer) > 60 04/28/18 06:25 Random Glucose 110 mg/dL (70-110) 04/28/18 06:25 Calcium 8.1 mg/dL (8.4-10.5) L 04/28/18 06:25 Magnesium 2.1 mg/dL (1.7-2.2) 04/27/18 10:08 Total Bilirubin 0.4 mg/dL (0.2-1.3) 04/28/18 06:25 AST 21 U/L (14-36) 04/28/18 06:25 ALT 25 U/L (7-56) 04/28/18 06:25 Alkaline Phosphatase 58 U/L (38-126) 04/28/18 06:25 Total Protein 6.2 g/dL (5.8-8.3) 04/28/18 06:25 Albumin 3.4 g/dL (3.0-4.8) 04/28/18 06:25 Globulin 2.8 gm/dL 04/28/18 06:25 Albumin/Globulin Ratio 1.2 (1.1-1.8) 04/28/18 06:25 Lipase 51 U/L (23-300) 04/27/18 10:08 Urine Color Yellow (YELLOW) 04/27/18 11:00 Urine Appearance Clear (CLEAR) 04/27/18 11:00 Urine pH 7.5 (4.7-8.0) 04/27/18 11:00 Ur Specific [place] 1.010 (1.005-1.035) 04/27/18 11:00 Urine Protein 30 mg/dL (<30 mg/dL) H 04/27/18 11:00 Urine Glucose (UA) Negative mg/dL (NEGATIVE) 04/27/18 11:00 Urine Ketones Negative mg/dL (NEGATIVE) 04/27/18 11:00 Urine Blood Negative (NEGATIVE) 04/27/18 11:00 Urine Nitrate Negative (NEGATIVE) 04/27/18 11:00 Urine Bilirubin Negative (NEGATIVE) 04/27/18 11:00 Urine Urobilinogen 0.2 E.U./dL (<1 E.U./dL) 04/27/18 11:00 Ur Leukocyte Esterase Negative [place]/uL (NEGATIVE) 04/27/18 11:00 Urine RBC 0 - 2 /hpf (0-2) 04/27/18 11:00 Urine WBC 1 - 3 /hpf (0-6) 04/27/18 11:00 Ur Epithelial Cells 4 - 5 /hpf (0-5) 04/27/18 11:00 Urine Bacteria Many /hpf (NONE) 04/27/18 11:00 Urine Other Uyeast /hpf 04/27/18 11:00 Influenza Typ A,B (EIA) Negative for flu a/b (NEGATIVE) 04/27/18 10:08 Attending/Attestation - Attestation I have personally seen and examined this patient.: Yes I have fully participated in the care of the patient.: Yes I have reviewed all pertinent clinical information, including history, physical exam and plan: Yes Notes (Text): 04/29/18 15:43 Attending note; Patient seen and examined with resident. Patient is alert and awake. Denies any fevers, chills. Denies any nausea, vomiting. Denies any diarrhea. Tolerating liquid diet well. Advance to soft diet. Patient is a 23-year-old female with no significant past medical history that presented to the emergency room with nausea, vomiting, abdominal pain, and diarrhea. 1. Viral gastroenteritis. Patient afebrile. Leukocytosis rsolved. CT abdomen and pelvis showed findings consistent with a nonspecific diarrheal illness, minor fatty hepatic infiltration. Currently diarrhea resolved. Tolerating diet. 2. Nausea, vomiting; resolved. 3. Tachycardia resolved after adequate hydration. Encourage increased by mouth intake. Dietary education given. Patient will be discharged home. Follow-up with PMD Dr. Milton in 3 to 5 days.
== END 2018-04-28 18:15 | disposition home or self-care (01) ==
LOC: ED 09:19 → ERH 14:20 → 5RNO 21:03
PROVIDERS: ADMIT Internal Medicine; ATTEND Internal Medicine
DX: A08.4 Viral intestinal infection, unspecified (principal); E86.0 Dehydration; Z83.3 Family history of diabetes mellitus
CPT/HCPCS: 36415; 74177; 80053; 81001; 81025; 83690; 83735; 85025; 87045; 87324; 87804; 96374; 96375; 99284; G0378; J0744; J2405; J3480; J7030; Q9967